=== PATIENT | male | born 1980 | race African-American/Black ===

== ENCOUNTER 2017-03-21 20:11 | Emergency (ER) | payer BC ==
[2017-03-21 20:26] VITALS: BP 125/81; PULSE 89; TEMP 99.8; BMI 28.4
--- NOTE | 2017-03-21 20:36 | PDOC ---
History of Present Illness - General History Source: Patient Exam Limitations: No Limitations - History of Present Illness Initial Comments: 03/21/17 20:52 The patient is a 36 year old male with no significant past medical history, who presents to the ED with lower left quadrant abdominal pain that began today. He states he has been having gas and a fever secondary to the LLQ pain. He states he ate a multi-grain bar today and it felt like spikes were going through his stomach. Pt went [place] today and met with a PA. She advised him to come in to the ED immediately for a CT scan to rule out diverticulitis. He denies recent travels, but has a daughter and at home with the stomach virus. Denies nausea, vomiting, diarrhea. Denies dysuria, frequency, hematuria. PAST MEDICAL HISTORY: no significant history PAST SURGICAL HISTORY: no significant history FAMILY HISTORY: no pertinent history SOCIAL HISTORY: Pt lives with family and is employed. MEDICATIONS: reviewed ALLERGIES: As per nursing notes ROS General: No fevers or chills, no weakness, no weight loss HEENT: No change in vision. No sore throat,. No ear pain CardioVascular: No chest pain or shortness of breath Respiratory:No cough, or wheezing. Gastrointestinal: + lower left abdominal pain. no nausea, vomiting, diarrhea or constipation, No rectal bleeding Genitourinary: No dysuria, hematuria, or frequency Musculoskeletal: No joint or muscle pain or swelling Neurologic: No headache, vertigo, dizziness or loss of consciousness Psychiatric: nor depression Skin: No rashes or easy bruising Endocrine: no increased thirst or abnormal weight change Allergic: no skin or latex allergy All other systems reviewed and normal PE GENERAL: The patient is awake, alert, and fully oriented, in no acute distress. HEAD: Normal with no signs of trauma. EYES: Pupils equal, round and reactive to light, extraocular movements intact, sclera anicteric, conjunctiva clear. EXTREMITIES: Normal range of motion, no edema. ABDOMINAL: Mild tenderness over left lower quadrant. No guarding no rebound. NEUROLOGICAL: Normal speech, normal gait. PSYCH: Normal mood, normal affect. SKIN: Warm, Dry, normal turgor, no rashes or lesions noted. <Rodolfo Sumner - Last Filed: 03/21/17 20:52> - General History Source: Patient Exam Limitations: No Limitations - History of Present Illness Initial Comments: A portion of this note was documented by scribe services under my direction. I have reviewed the details of the note, within reason, and agree with the documentation. The case summary and management plan written by me. 03/21/17 22:59 CAT scan is normal no evidence of any acute pathology, appendicitis or diverticulitis Assessment and plan: This is a 36-year-old male who comes in complaining of abdominal pain. Patient was sent in from the urgent care center for a CAT scan to rule out diverticulitis. Patient is otherwise healthy and he had a CAT scan that was negative. Patient discharged home will follow-up with his primary care doctor. Patient had several family members with similar symptoms but had additional symptoms of diarrhea and vomiting patient did not have a diarrhea or vomiting but I suspect this is most likely a viral etiology as well. <Jeri Burleson I - Last Filed: 03/21/17 23:01> - General Chief Complaint: Pain, Acute Stated Complaint: LLQ PAIN Time Seen by Provider: 03/21/17 20:12 Past History <Rodolfo Sumner - Last Filed: 03/21/17 20:52> - Psycho/Social/Smoking Cessation Hx Anxiety: No Suicidal Ideation: No Smoking History: Unknown if ever smoked Have you smoked in the past 12 months: No Number of Cigarettes Smoked Daily: 0 Information on smoking cessation initiated: No Hx Alcohol Use: No Drug/Substance Use Hx: No Substance Use Type: None <Jeri Burleson I - Last Filed: 03/21/17 23:01> - Past Medical History Allergies/Adverse Reactions: Allergies Allergy/AdvReac Type Severity Reaction Status Date / Time No Known Allergies Allergy Unverified 03/21/17 20:15 Home Medications: Ambulatory Orders NK [No Known Home Medication] 03/21/17 *Physical Exam - Vital Signs Last Vital Signs Temp Pulse Resp BP Pulse Ox 99.8 F H 89 14 125/81 98 03/21/17 20:13 03/21/17 20:13 03/21/17 20:13 03/21/17 20:13 03/21/17 20:13 <Rodolfo Sumner - Last Filed: 03/21/17 20:52> - Vital Signs Last Vital Signs Temp Pulse Resp BP Pulse Ox 99.8 F H 89 14 125/81 98 05/24/17 20:13 03/21/17 20:13 03/21/17 20:13 03/21/17 20:13 03/21/17 20:13 <Jeri Burleson I - Last Filed: 03/21/17 23:01> ED Treatment Course - LABORATORY CBC & Chemistry Diagram: 03/21/17 20:50 03/21/17 20:50 <eJri Burleson I - Last Filed: 03/21/17 23:01> *DC/Admit/Observation/Transfer - Attestations Scribe Attestion: 03/21/17 20:54 Documentation prepared by Rodolfo Sumner, acting as medical supervisor for Jeri Burleson MD. <Rodolfo Sumner - Last Filed: 03/21/17 20:52> - Discharge Dispostion Admit: No <Jeri Burleson I - Last Filed: 03/21/17 23:01> Diagnosis at time of Disposition: Abdominal pain Qualifiers: Abdominal location: left lower quadrant Qualified Code(s): R10.32 - Left lower quadrant pain - Discharge Dispostion Disposition: HOME Condition at time of disposition: Good - Patient Instructions Printed Discharge Instructions: DI for Abdominal Pain-Adult Additional Instructions: Return to the emergency department immediately with ANY new, persistent or worsening symptoms. Continue any medications as previously prescribed by your physician. You should follow up with your primary doctor as soon as possible regarding today's emergency department visit. . Please make sure your doctor reviews the results of your emergency evaluation. Thank you for coming to the Emergency Department today for your care. It was a pleasure to see you today. Please note that your evaluation is INCOMPLETE until you follow-up with your doctor.
[2017-03-21 21:06] LABS: BASOPHIL 4.2 % (0-2.0); EOSINOPHIL 0.7 % (0-4.5); MCH 30.1 pg (25.7-33.7); MCHC 34.2 g/dl (32.0-35.9); MEAN PLT VOLUME 9.1 fl (7.5-11.1); NEUTROPHILS 70.4 % (42.8-82.8); PLATELET COUNT 183 K/MM3 (134-434); RDW 12.4 % (11.9-15.9); WHITE BLOOD COUNT 6.4 K/mm3 (4.0-10.8)
[2017-03-21 21:24] LABS: ALBUMIN 4.2 g/dl (3.5-5.0); ALK PHOS 66 U/L (32-92); ANION GAP 10 (8-16); BILIRUBIN,TOTAL 1.9 mg/dl (0.2-1.0); CALCIUM 9.4 mg/dl (8.4-10.2); CO2 27 mmol/L (22-28); CREATININE 1.2 mg/dl (0.6-1.3); GLUCOSE,RANDOM 92 mg/dl (74-106); SGOT/AST 24 U/L (10-42); SGPT/ALT 25 U/L (10-40); TOT PROT 7.4 g/dl (6.4-8.3)
[2017-03-21] MEDS ORDERED: HYOSCYAMINE SULFATE 0.125 MG *ODT PO ONE (22:06)
[2017-03-21] MEDS ORDERED: HYOSCYAMINE SULFATE 0.125 MG *ODT ONE (22:09)
== END 2017-03-21 23:04 | disposition home or self-care (01) ==
LOC: FER 20:11
DX: R10.32 Left lower quadrant pain (principal)
CPT/HCPCS: 36415; 74177-TC; 80053; 83690; 85025; 99283-25